=== PATIENT | male | born 1965 | race African-American/Black ===

== ENCOUNTER 2018-04-10 22:54 | Emergency (ER) | payer OTHER ==
--- OUTSIDE RECORDS SUMMARY | 2018-04-10 22:56 | XMS REPORT | Clinical Summary ---
:1965 Author Organization [facility] Address [address] [place] [address] Care Team Providers Name Role Phone Yayo Coffman MD Primary Care Provider Allergies No Known Allergies Current Medications Prescription Sig. Disp. Refills Start Date End Date Status GENVOYA TK 1 T PO D 1 11/13/2016 Active [phone] mg WITH FOOD. per tablet START 24 H AFTER TAKING LAST STRIBILD. aspirin (ECOTRIN) Take 81 mg by Active 81 MG enteric mouth daily. coated tablet nicotine Dissolve 4 mg Active polacrilex in the mouth (NICORETTE) 4 MG as needed for lozenge smoking cessation. metoprolol Take .5 tablet 180 tablet 3 12/14/2017 Active tartrate once daily (LOPRESSOR) 25 mg tablet albuterol (PROAIR Inhale 2 puffs 18 g 0 12/11/2016 09/10/2017 Discontinued HFA) 90 every 6 (six) mcg/actuation hours as inhalerIndications needed for : Bronchitis wheezing. Script given at time of appt ipratropium Inhale 2 puffs 12.9 g 0 12/11/2016 09/10/2017 Discontinued (ATROVENT HFA) 17 4 (four) times mcg/actuation a day. Script inhalerIndications given at time : Bronchitis of appt HYDROcodone-acetam 07/24/2017 12/10/2017 Discontinued inophen (NORCO) 5-325 mg per tablet azithromycin Take 2 tablets 6 tablet 0 09/10/2017 09/14/2017 (ZITHROMAX Z-AMANDA) the first day, 250 MG then 1 tablet tabletIndications: daily for 4 Pneumonia of right days. lower lobe due to infectious organism (HCC) lidocaine 09/14/2017 12/10/2017 Discontinued (XYLOCAINE) 5 % ointment ipratropium Inhale 2 puffs 12.9 g 0 09/17/2017 10/11/2017 Discontinued (ATROVENT HFA) 17 4 (four) times mcg/actuation a day. inhalerIndications : Bronchitis fluticasone Inhale 2 puffs 12 g 0 09/17/2017 10/15/2017 Discontinued (FLOVENT HFA) 110 2 (two) times mcg/actuation a day. inhalerIndications : Bronchitis ATROVENT HFA 17 INHALE 2 PUFFS 12.9 g 0 10/11/2017 10/14/2017 Discontinued mcg/actuation BY MOUTH FOUR inhalerIndications TIMES DAILY : Bronchitis ipratropium Inhale 2 puffs 12.9 g 0 10/14/2017 12/10/2017 Discontinued (ATROVENT HFA) 17 4 (four) times mcg/actuation a day. As inhalerIndications needed for : Bronchitis cough FLOVENT HFA 110 INHALE 2 PUFFS 12 g 0 10/15/2017 12/10/2017 Discontinued mcg/actuation BY MOUTH TWICE inhalerIndications DAILY : Bronchitis Active Problems Problem Noted Date Sarcoidosis of lung ([facility]) 12/11/2016 PTSD (post-traumatic stress disorder) 12/11/2016 HIV (human immunodeficiency virus infection) ([facility]) 12/11/2016 Proteinuria 12/11/2016 Tobacco use 12/11/2016 Encounters Date Type Specialty Care Team Description 01/29/2018 Office Visit Cardiology [facility] Palpitations (Primary Dx) MD Migel 01/07/2018 Orders Only Cardiology Migel Graves MD 12/21/2017 Orders Only Cardiology Guero Hou Palpitations (Primary Dx); GRADY Berumen Chest pain, unspecified type 12/11/2017 Office Visit Cardiology [facility] Elevated blood pressure reading ; MD Migel Palpitations; Chest tightness 12/10/2017 Office Visit Family Medicine Yayo Coffman MD Elevated blood pressure reading (Primary Dx); Palpitations; Chest tightness 10/15/2017 Refill Family Medicine Yayo Coffman MD Bronchitis 10/14/2017 Refill Family Medicine Nicole Jimenez Bronchitis MA 10/11/2017 Refill Family Medicine Yayo Coffman MD Bronchitis 09/17/2017 Office Visit Family Yayo Gonzalez MD Bronchitis ( Primary Dx) 09/10/2017 Office Visit Family Yayo Gonzalez MD Pneumonia of right lower lobe due to infectious organism (Primary Dx); Tobacco use 06/26/2017 Telephone Family Yayo Gonzalez MD after 04/09/2017 Immunizations Name Dates Previously Given Next Due Pneumococcal Polysaccharide 12/11/2016 Family History Medical History Relation Name Comments Diabetes Father Heart disease Father Hypertension Father Hypertension Mother Von Willebrand disease Mother Relation Name Status Comments Father Mother Alive Social History Tobacco Use Types Packs/Day Years Used Date Current Every Day Smoker Cigarettes 0.5 30 Smokeless Tobacco: Never Used Tobacco Cessation: Ready to Quit: Yes; Counseling Given: Yes Alcohol Use Drinks/Week oz/Week Comments Yes social Sex Assigned at Date Recorded Not on file Last Filed Vital Signs Vital Sign Reading Time Taken Blood Pressure 142/78 01/29/2018 9:25 AM CDT Pulse 52 01/29/2018 9:25 AM CDT Temperature 37 C (98.6 F) 01/29/2018 9:25 AM CDT Respiratory Rate 16 01/29/2018 9:25 AM CDT Oxygen Saturation 98% 01/29/2018 9:25 AM CDT Inhaled Oxygen Concentration - - Weight 81.6 kg (180 lb) 01/29/2018 9:25 AM CDT Height 175.3 cm (5' 9") 01/29/2018 9:25 AM CDT Body Mass Index 26.58 01/29/2018 9:25 AM CDT Plan of Treatment Health Maintenance Due Date Last Done Comments COLON CANCER SCREENING 10/11/2015 SHINGRIX VACCINE (#1) 10/11/2015 INFLUENZA VACCINE 01/06/2018 Procedures Procedure Name Priority Date/Time Associated Diagnosis Comments CV HOLTER MONITOR Routine 01/07/2018 12:00 GREATER THAN 48 HOUR AM CDT ECHOCARDIOGRAM 2D Routine 12/24/2017 3:54 Palpitations Results for this COMPLETE W MMODE PM CDT procedure are in SPECTRAL COLOR DOPPLER the results (61117) section. CV STRESS TEST Routine 12/14/2017 8:19 Palpitations Results for this AM CDT procedure are in the results section. ECG 12-LEAD Routine 12/10/2017 3:05 Palpitations Results for this PM CDT procedure are in the results section. after 04/09/2017 Results CV Holter monitor greater than 48 hours (01/07/2018) Narrative Performed At Echocardiogram complete w contrast and 3D if needed (12/24/2017 3:54 PM) Ao Root Diameter 3.43 cm [facility] AoV Area, Vmax 3.26 cm2 [facility] AoV Area, VTI 2.82 cm2 [facility] AoV Mean PG 4.28 mmHg [facility] AoV Peak PG 8.23 mmHg [facility] AoV Vmax 1.43 m/s [facility] AoV VTI 0.37 m [facility] BSA Orta 1.97 m2 [facility] BSA 1.94 m2 [facility] IVS,d 0.91 cm [facility] IVS/LVPW,2D 1.04 [facility] Left Atrium Dimension Anterior 4.01 cm [facility] LV,d 4.65 cm [facility] LV EF,2D 67.49 % [facility] LV EF,A2C 59.62 % [facility] LV EF,A4C 53.48 % [facility] LV EF,BP 55.67 % [facility] Paulie Mcgrath,d A2C 9.17 cm [facility] Paulie Mcgrath,d A4C 9.28 cm [facility] Paulie Mcgrath,s A2C 7.84 cm [facility] Paulie Mcgrath,s A4C 7.34 cm [facility] LV,s 3.20 cm [facility] LV SV,A2C 61.38 % [facility] LV SV,A4C 61.55 % [facility] LV SV,BP 60.93 % [facility] LV Vol,d A2C 102.95 mL [facility] LV Vol,d A4C 115.09 ml [facility] LV Vol,d BP 109.45 ml [facility] LV Vol,s A2C 41.57 mL [facility] LV Vol,s A4C 53.53 ml [facility] LV Vol,s BP 48.52 nl [facility] LVOT area 3.80 cm2 [facility] LVOT Diam,S 2.20 cm [facility] LVOT Vmax 1.23 m/s [facility] LVOT VTI 0.27 m [facility] LVPWD,d 0.88 cm [facility] RVSP (TR) 30.56 mmHg [facility] TR Vpeak 2.27 mm/s [facility] MV E A ratio 1.14 mmHg [facility] RA pressure 10.00 mmHg [facility] TR pk grad 20.56 mmHg [facility] AoV area i VTI BSA Herbert 1.45 cm2/m2 [facility] LV SI MOD BP BSA [place] 31.37 ml/m2 [facility] LV Vol Index s bpmod BSA [place] 56.35 ml/m2 [facility] PV Vmn 24.98 m/s [facility] BMI 25.55 kg/m2 [facility] E wave decelartion time 156.77 msec [facility] Pulm vein S/D ratio 1.12 [facility] MV Peak A Leonid 0.65 m/s [facility] MV valve area p 1/2 method 4.84 cm2 [facility] MV Peak E Leonid 0.74 m/s [facility] MV stenosis pressure 1/2 time 45.46 ms [facility] PV Peak S Leonid 72.81 m/s [facility] PV Peak D Leonid 65.14 m/s [facility] AV LVOT peak gradient 6.01 mmHg [facility] RVSP 30.56 mmHg [facility] Ao Root Diameter 3.43 cm [facility] LV SYS VOL 40.82 ml [facility] LV [place] VOL 99.69 ml [facility] LA area s A4C 19.91 cm2 [facility] LV SI Teich 2D 30.31 ml/m2 [facility] LV SV Teich 2D 58.88 ml [facility] LV Vol s Teich PSAX 40.82 ml [facility] LVOT CI 2.84 l/min/m2 [facility] LVOT CO 5.52 l/min [facility] LVOT HR for LVOT CO 52.95 bpm [facility] LVOT SI 53.66 ml/m2 [facility] BSA Haycock 1.96 m2 [facility] AoV Vmn 0.97 [facility] IVS s 2D 1.14 [facility] LV FS Teich 2D 31.24 [facility] MV AE ratio 0.88 [facility] LV FS Cube 2D 31.24 [facility] LVOT Vmn 0.74 [facility] Pt Size 175.26 [facility] Pt Wt 78.47 [facility] Aov area Vmn 2.91 cm2 [facility] LA A_P score P 1.95 [facility] LVOT mean grad 2.54 mmHg [facility] AoV area I VMN bsa 1.50 cm2/m2 [facility] IVS pct thck PLAX 24.78 % [facility] LV SI Cube 2D 34.88 ml/m2 [facility] LV SV Cube 2D 67.74 ml [facility] LV vol d cube 2D 100.37 ml [facility] LV vol s cube 2D 32.63 ml [facility] LVPW pct thck PLAX 24.19 % [facility] LVPW s PLAX 1.09 cm [facility] MV Decel slope 4.75 m/s2 [facility] PulmV [place] Leonid 65.14 cm/s [facility] PulmV S D Leonid 1.12 [facility] PulmV Sys Leonid 72.81 cm/s [facility] PulmV A Revs Leonid 28.61 % [facility] LA Vol MOD A4C 57.24 ml [facility] Velocity Ratio (V1/V2) 0.86 m/s [facility] EF 59.05 % [facility] E/A ratio 1.14 [facility] LV Systolic Volume Index 21.43 mL/m2 [facility] LV Diastolic Volume Index 53.07 mL/m2 [facility] Narrative Performed At The left ventricle chamber size is normal. [facility] Left Ventricular ejection fraction is 60 - 65%. Normal RV size and function. No pericardial effusion No hemodynamically significant valvular abnormalituies. Performing Organization Address City/State/Zipcode Phone Number [facility] [address] [place] [address] Clinic Performed exercise treadmill stress (no imaging) (12/14/2017 8:19 AM) Resting HR 62 [facility] Resting BP 138 [facility] Peak MET Achieved 13.4 [facility] Protocol Name CHACE [facility] Time in Exercise Phase 00:11:00 [facility] Max Systolic BP 209 [facility] Max Diastolic BP 97 [facility] Max Heart Rate 169 [facility] Max Predicted Heart Rate 168 [facility] Target HR Formula (220 - Age)*100% [facility] Test Indication [facility] Arrhy During Ex Ventricular Premature Beats, [facility] Isolated ECG Interp Before EX Normal [facility] ECG Interp During Ex [facility] Ex Summary Comment Normal stress test [facility] Chest Pain Statement No Chest Pain [facility] Overall HR Response to Exercise Normal Overall HR Response To [facility] Exercise Overall BP Response To Exercise Normal Resting BP with [facility] Appropriate Response Reason for Termination Symptoms [facility] Stress Test Impression No abnormal ST-t changes with [facility] exercise.-Frequent PVC's wothe xercise.- Narrative Performed At Performing Organization Address [facility] Phone Number [facility] [address] [place] [address] ECG 12 lead (12/10/2017 3:05 PM) Ventricular rate 57 [facility] Atrial rate 57 [facility] DC interval 140 [facility] QRSD interval 92 [facility] QT interval 448 [facility] QTC interval 436 [facility] P axis 1 33 [facility] QRS axis 1 67 [facility] T wave axis 60 [facility] EKG impression Sinus bradycardia-Otherwise normal ECG-No [facility] previous ECGs available- Performing Organization Address City/[facility] Phone Number [facility] [address] [place] [address] after 04/09/2017 Insurance Payer Benefit Plan / Group Subscriber ID Type Phone Address [facility] CHOICE/CHOICE + xxxxxxxxx HMO/PPO
[2018-04-10] MEDS ORDERED: TETANUS & DIPHTHERIA TOX,ADULT 0.5 ML VIAL ONE (23:36)
[2018-04-10] MEDS ORDERED: THIAMINE 200 MG/2 ML INJ ONE (23:42)
[2018-04-10] MEDS ORDERED: MULTIVITAMINS 10 ML VIAL (INJ) IV ONE (23:43)
[2018-04-10] MEDS ORDERED: FOLIC ACID 5 MG/ML VIAL ONE (23:44)
[2018-04-10] MEDS ORDERED: NA CHLORIDE 0.9% 1,000 ML ONE (23:45)
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
[2018-04-11] MEDS ORDERED: HYDROCODONE/APAP 5/325 MG TAB ONE (01:32)
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
== END 2018-04-11 01:54 | disposition home or self-care (01) ==
LOC: ER 22:54
DX: S22.41XA Multiple fractures of ribs, right side, initial encounter for closed fracture (principal); S16.1XXA Strain of muscle, fascia and tendon at neck level, initial encounter; S39.012A Strain of muscle, fascia and tendon of lower back, initial encounter; V18.0XXA Pedal cycle driver injured in noncollision transport accident in nontraffic accident, initial encounter; Z23 Encounter for immunization; Z72.0 Tobacco use
CPT/HCPCS: 70450; 71250; 72125; 90714; 96365; 96366; 99284; J3411; J7030